=== PATIENT | female | born 1980 | race Caucasian/White ===

== ENCOUNTER 2019-10-12 14:36 | Emergency (ER) | payer OTHER ==
[~2019-10-12] VITALS: Ht 162.6 cm; Wt 65.8 kg
[~2019-10-12 14:36] MED LIST: ORTHO TRI-CYCL1 EACH; ZPAK PO
[2019-10-12] MEDS ORDERED: ENBRACE HR SOF1 EACH PO (14:44)
[2019-10-12 14:56] LABS: URINE BILIRUBIN NEGATIVE (Negative); URINE BLOOD 3+ (Negative); URINE CLARITY SL CLOUDY; URINE COLOR YELLOW; URINE GLUCOSE-RANDOM NEGATIVE (Negative); URINE KETONES 1+ (Negative); URINE LEUKOCYTES-REFLEX NEGATIVE (Negative); URINE NITRITE-REFLEX NEGATIVE (Negative); URINE PROTEIN TRACE (Negative); URINE SPECIFIC GRAVITY >= 1.030 (1.005-1.030); URINE UROBILINOGEN 0.2 E.U./dl (0.2-1.0)
[2019-10-12 15:05] LABS: SQUAMOUS >10 Many /LPF (0-3); URINE WBC-REFLEX 0-5 Rare /HPF (0-5)
[2019-10-12 15:07] LABS: BACTERIA-REFLEX >30 Many /HPF (None Seen); CALCIUM OXALATE 0-3 Few /LPF (None Seen); CASTS None Seen /LPF (None Seen); URINE RBC 3-10 Few /HPF (0-2)
[2019-10-12 15:08] LABS: YEAST-REFLEX Present (None Seen)
[2019-10-12 15:17] LABS: ABSOLUTE LYMPHOCYTES 2.1 thou/uL (0.8-5.3); ABSOLUTE MONOCYTES 0.5 thou/uL (0.0-1.2); ABSOLUTE NEUTROPHILS 8.1 thou/uL (1.6-8.1); BASOPHILS 0.4 %; EOSINOPHILS 0.3 %; HEMATOCRIT 39.4 % (37.0-47.0); HEMOGLOBIN 13.3 gm/dL (12.0-15.0); LYMPHOCYTES 19.7 %; MCH 28.7 pg (26.0-34.0); MCHC 33.7 g/dL (28.0-37.0); MONOCYTES 4.8 %; NUCLEATED RBCS 0 /100WBC; PLATELET COUNT* 270 thou/uL (150-400); POLYS 74.8 %; RBC 4.63 mil/uL (4.20-5.00); RDW-CV 13.4 % (10.5-14.5); WBC 10.9 thou/uL (4.0-11.0)
[2019-10-12 15:25] LABS: CALCIUM 8.9 mg/dL (8.5-10.1); CREATININE 1.1 mg/dL (0.6-1.3); POTASSIUM 3.2 mmol/L (3.5-5.1)
[2019-10-12 15:30] LABS: ALBUMIN 4.3 g/dL (3.4-5.0); TOTAL BILIRUBIN 0.4 mg/dL (<0.1-1.0); TOTAL PROTEIN 7.9 g/dL (6.4-8.2)
[2019-10-12] MEDS ORDERED: NORCO 5-325 TA1 EAC1 PO (16:10)
[2019-10-12] MEDS ORDERED: FLOMAX0.4 MG PO (16:10)
[2019-10-12] MEDS ORDERED: ZOFRAN ODT4 MG DISSOLVE (16:10)
[2019-10-12] MEDS ORDERED: IBUPROFEN 800800 M1 PO (16:10)
[2019-10-12 16:24] VITALS: BP 127/76
== END 2019-10-12 16:25 | disposition home or self-care (01) ==
LOC: M.ERS 14:36
PROVIDERS: Emergency Medicine Emergency Medical Services
DX: N20.0 Calculus of kidney (principal)

== ENCOUNTER 2020-08-22 14:32 | Emergency (ER) | payer OTHER ==
[~2020-08-22] VITALS: Ht 162.6 cm; Wt 63.5 kg
[~2020-08-22 14:32] MED LIST changes: +ENBRACE HR SOF1 EACH PO; +FLOMAX0.4 MG PO; +IBUPROFEN 800800 M1 PO; +NORCO 5-325 TA1 EAC1 PO; +ZOFRAN ODT4 MG DISSOLVE
[2020-08-22] MEDS ORDERED: PROGESTERO50 MG/1 M3 VAG (14:49)
[2020-08-22 15:16] LABS: ABSOLUTE BASOPHILS 0.1 thou/uL (0.0-0.2); ABSOLUTE LYMPHOCYTES 1.5 thou/uL (0.8-5.3); ABSOLUTE MONOCYTES 0.4 thou/uL (0.0-1.2); ABSOLUTE NEUTROPHILS 6.9 thou/uL (1.6-8.1); BASOPHILS 0.7 %; EOSINOPHILS 0.5 %; HEMATOCRIT 40.5 % (37.0-47.0); HEMOGLOBIN 13.9 gm/dL (12.0-15.0); LYMPHOCYTES 17.4 %; MCH 29.3 pg (26.0-34.0); MCHC 34.2 g/dL (28.0-37.0); MCV 85.5 fL (80.0-100.0); MONOCYTES 4.2 %; MPV 7.4 fl. (7.2-11.1); NUCLEATED RBCS 0 /100WBC; PLATELET COUNT* 280 thou/uL (150-400); POLYS 77.2 %; RBC 4.74 mil/uL (4.20-5.00); RDW-CV 13.5 % (10.5-14.5); WBC 8.9 thou/uL (4.0-11.0)
[2020-08-22 15:23] LABS: CALCIUM 8.6 mg/dL (8.5-10.1); CREATININE 0.9 mg/dL (0.6-1.3)
[2020-08-22 15:28] LABS: ALBUMIN 3.9 g/dL (3.4-5.0); TOTAL BILIRUBIN 0.4 mg/dL (<0.1-1.0); TOTAL PROTEIN 7.4 g/dL (6.4-8.2)
[2020-08-22] MEDS ORDERED: MECLIZINE HCL25 M1 PO (16:00)
[2020-08-22 16:36] VITALS: BP 104/57
== END 2020-08-22 16:37 | disposition home or self-care (01) ==
LOC: M.ERS 14:32
PROVIDERS: Emergency Medicine Emergency Medical Services
DX: R42 Dizziness and giddiness (principal); Z87.442 Personal history of urinary calculi